=== PATIENT | male | born 1945 | race American Indian/Alaskan Native ===

== ENCOUNTER 2021-09-26 13:04 | Emergency (ER) | payer OTHER ==
[2021-09-26 14:36] VITALS: BP 147/79
--- NOTE | 2021-09-26 15:35 | XRay Report ---
LEFT ANKLE 3 VIEWS INDICATION / CLINICAL INFORMATION: Injury with twisted ankle, pain and swelling. COMPARISON: None available. FINDINGS: BONES / JOINT(S): There is a small ossific or calcific density lateral to the distal fibula, probably related to old trauma or dystrophic calcification, rather than acute avulsion fracture. No dislocati on. There are mild degenerative changes involving the dorsum of the midfoot. 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 SOFT TISSUES: There is mild soft tissue swelling, more prominent overlying the lateral malleolus. ADDITIONAL FINDINGS: None. Signer Name: Valentino Simental MD Signed: 09/26/2021 3:31 PM Workstation Name: [id number]
[2021-09-26] MEDS ORDERED: traMADol 50 MG TAB PO ONE (21:02)
--- NOTE | 2021-09-26 21:43 | Emergency Department Report ---
ED Lower Extremity HPI - General Chief Complaint: Extremity Injury, Lower Stated Complaint: LT ANKLE INJURY/ KNEE SWOLLEN Time Seen by Provider: 09/26/21 20:43 Source: patient Mode of arrival: Ambulatory Limitations: No Limitations - History of Present Illness Initial Comments: Patient 76-year-old male who presents for left lateral ankle pain and swelling x3 days. Patient states he twisted his ankle stepping off a curb 2 days ago. Now with pain and swelling the same. There is no deformity no numbness or tingling or paralysis. Patient is partial weightbearing. There is noted moderate swelling mild erythema. No ecchymosis. Pain is rated at 5/10. Pain is exacerbated by weightbearing. Pain is relieved by offloading and rest. 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 MD Complaint: ankle injury - Related Data Previous Rx's Medication Instructions Recorded Last Taken Type Acetaminophen [Tylenol Extra 1,000 mg PO Q6H PRN #30 tab 09/26/21 Unknown Rx Strength] Allergies Allergy/AdvReac Type Severity Reaction Status Date / Time No Known Allergies Allergy Verified 09/26/21 14:37 ED Review of Systems ROS: Stated complaint: LT ANKLE INJURY/ KNEE SWOLLEN Other details as noted in HPI Constitutional: denies: chills, fever Eyes: denies: eye pain, eye discharge, vision change ENT: denies: ear pain, throat pain Respiratory: denies: cough, shortness of breath, wheezing Cardiovascular: denies: chest pain, palpitations Endocrine: no symptoms reported Gastrointestinal: denies: abdominal pain, nausea, vomiting, diarrhea Genitourinary: denies: urgency, dysuria Musculoskeletal: joint swelling, other (Left ankle pain and swelling). denies: back pain, arthralgia Skin: denies: rash, lesions Neurological: denies: headache, weakness, paresthesias Psychiatric: denies: anxiety, depression Hematological/Lymphatic: denies: easy bleeding, easy bruising ED Past Medical Hx - Past Medical History Previous Medical History?: No - Surgical History Past Surgical History?: No - Medications Home Medications: Home Medications Medication Instructions Recorded Confirmed Last Taken Type Acetaminophen [Tylenol Extra 1,000 mg PO Q6H PRN #30 tab 09/26/21 Unknown Rx Strength] ED Physical Exam - General Limitations: No Limitations General appearance: alert, in no apparent distress - Head Head exam: Present: normocephalic, normal inspection - Eye Eye exam: Present: EOMI Pupils: Present: normal accommodation - ENT ENT exam: Present: mucous membranes moist - Neck Neck exam: Present: normal inspection, full ROM. Absent: tenderness, lymphadenopathy - Respiratory Respiratory exam: Present: normal lung sounds bilaterally. Absent: respiratory distress, wheezes - Cardiovascular Cardiovascular Exam: Present: regular rate, normal rhythm, normal heart sounds. Absent: systolic murmur, diastolic murmur, rubs, gallop - GI/Abdominal GI/Abdominal exam: Present: soft, normal bowel sounds. Absent: distended, tenderness - Rectal Rectal exam: Present: deferred - Extremities Exam Extremities exam: Present: normal inspection, normal capillary refill - Expanded Lower Extremity Exam Left Ankle exam: Present: full ROM, tenderness (Left lateral tenderness negative Loya sign distal pulses intact +2 RT less than 3 seconds. Mild pain with rotation), swelling. Absent: abrasion, laceration, ecchymosis, deformity, crepidus, dislocation, erythema, anterior draw sign Foot/Toe exam: Present: full ROM. Absent: tenderness, swelling Neuro vascular tendon exam: Absent: pulse deficit, motor deficit, sensory deficit, tendon deficit Gait: Positive: observed and limited by pain - Back Exam Back exam: Present: normal inspection, full ROM. Absent: paraspinal tenderness, vertebral tenderness - Neurological Exam Neurological exam: Present: alert, oriented X3, CN II-XII intact, reflexes normal. Absent: motor sensory deficit - Expanded Neurological Exam Expanded Patient oriented to: Present: person, place, time Speech: Present: fluid speech Motor strength exam: RUE: 5, LUE: 5, RLE: 5, LLE: 5 DTR: ankle (R): 1+, ankle (L): 1+ Best Eye Response ([place]): (4) open spontaneously Best Motor Response ([place]): (6) obeys commands Best Verbal Response (Jennifer): (5) oriented [place] Total: 15 - Psychiatric Psychiatric exam: Present: normal affect, normal mood - Skin Skin exam: Present: warm, dry, intact, normal color. Absent: rash ED Course Vital Signs 09/26/21 14:34 Temperature 97.9 F Pulse Rate 78 Respiratory 18 Rate Blood Pressure 147/79 [Right] O2 Sat by Pulse 100 Oximetry ED Lower Extremity MDM - Radiology Data Radiology results: report reviewed, image reviewed - Medical Decision Making LEFT ANKLE 3 VIEWS INDICATION / CLINICAL INFORMATION: Injury with twisted ankle, pain and swelling. COMPARISON: None available. FINDINGS: BONES / JOINT(S): There is a small ossific or calcific density lateral to the distal fibula, probably related to old trauma or dystrophic calcification, rather than acute avulsion fracture. No dislocation. There are mild degenerative changes involving the dorsum of the midfoot. 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 SOFT TISSUES: There is mild soft tissue swelling, more prominent overlying the lateral malleolus. ADDITIONAL FINDINGS: None. Signer Name: Valentino Simental MD Signed: 09/26/2021 3:31 PM Workstation Name: [id number] Transcribed By: RT Dictated By: Valentino Simental MD Electronically Authenticated By: Valentino Simental MD Signed Date/Time: 09/26/21 153 DD/ 26 TD/TT: Critical care attestation.: If time is entered above; I have spent that time in minutes in the direct care of this critically ill patient, excluding procedure time. ED Disposition Clinical Impression: Left ankle sprain Qualifiers: Encounter type: initial encounter Involved ligament of ankle: unspecified ligament Qualified Code(s): S93.402A - Sprain of unspecified ligament of left ankle, initial encounter Disposition: 01 HOME / SELF CARE / HOMELESS Is pt being admited?: No Does the pt Need Aspirin: No Condition: Stable Instructions: Ankle Sprain, Phase I Rehab-SportsMed Additional Instructions: Take medication as prescribed, use crutches and Matthew wrap as directed, follow-up with orthopedics in 2 to 3 days. Return to emergency department should symptoms worsen Prescriptions: Acetaminophen [Tylenol Extra Strength] 1,000 mg PO Q6H PRN #30 tab PRN Reason: Pain Referrals: VALENTINO MANCERA MD [Staff Physician] - 3-5 Days Forms: Work/School Release Form(ED) Time of Disposition: 21:46
== END 2021-09-26 23:57 | disposition home or self-care (01) ==
LOC: ED 13:04
DX: S93.402A Sprain of unspecified ligament of left ankle, initial encounter (principal); W50.2XXA Accidental twist by another person, initial encounter; Y93.89 Activity, other specified; Y92.89 Other specified places as the place of occurrence of the external cause; Y99.8 Other external cause status
CPT/HCPCS: 99283